=== PATIENT | male | born 1955 | race African-American/Black ===

== ENCOUNTER 2024-04-18 14:37 | Inpatient (IN) | payer MEDICARE ==
[~2024-04-18] VITALS: Ht 167.6 cm; Wt 59.9 kg
[2024-04-18 14:57] VITALS: O2SAT 98
[2024-04-18 15:54] LABS: BASOPHILS % 0.7 % (0.0-2.0); EOSINOPHILS % 0.9 % (0.0-5.0); HEMATOCRIT. 36.2 % (42.0-52.0); LYMPHOCYTES % 22.9 % (20.0-50.0); MEAN CORPUSCULAR HGB CONC 33.2 g/dL (31.0-37.0); MEAN CORPUSCULAR VOLUME 87.4 fL (80.0-94.0); MEAN PLATELET VOLUME 8.7 fl (7.4-10.4); NEUTROPHILS % 69.5 % (40.0-76.0); PLATELET 215 x1000/uL (130-400); RED BLOOD CELL COUNT 4.14 mill/uL (4.7-6.1); RED CELL DISTRIBUTION WIDTH 14.9 % (11.6-14.6); WHITE BLOOD COUNT 6.4 x1000/uL (4.5-11.0)
[2024-04-18 15:57] LABS: CLARITY URINE CLEAR (CLEAR); COLOR URINE DARK YELLOW (YELLOW); GLUCOSE URINE NEGATIVE (NEGATIVE); KETONES URINE TRACE (NEGATIVE); LEUKOCYTE ESTERASE URINE NEGATIVE (NEGATIVE); NITRITE URINE NEGATIVE (NEGATIVE); OCCULT BLOOD URINE NEGATIVE (NEGATIVE); PH URINE 5.5 (4.5-8.0); PROTEIN URINE 1+ (NEGATIVE); SPECIFIC GRAVITY URINE 1.031 (1.005-1.030)
[2024-04-18 15:59] LABS: CHLORIDE 105 mEq/L (98-107); POTASSIUM 4.1 mEq/L (3.5-5.1); SODIUM 140 mEq/L (136-145)
[2024-04-18 16:00] LABS: CARBON DIOXIDE 30 mEq/L (21-32)
[2024-04-18 16:01] LABS: CALCIUM 9.6 mg/dL (8.7-10.4)
[2024-04-18 16:05] LABS: CREATININE 1.7 mg/dL (0.6-1.3); GLUCOSE 84 mg/dL (70-105)
[2024-04-18 16:06] LABS: UREA NITROGEN BLOOD 22 mg/dL (9-23)
[2024-04-18 16:13] LABS: TROPONIN I HIGH SENSITIVITY 83 ng/L (3.0-53)
[2024-04-18] MEDS: HYDRALAZINE 20MG/ML VIAL IV ONE (16:14)
[2024-04-18 16:36] LABS: BACTERIA URINE NONE SEEN; RBC URINE 0-2 /hpf (0-2); SQUAMOUS EPITHELIAL CELL URINE RARE /lpf (RARE/1+); WBC URINE 0-2 /hpf (0-2)
[2024-04-18] MEDS: CLOPIDOGREL 75MG TABLET PO ONE (17:37)
[2024-04-18] MEDS: ASPIRIN 325MG EC TABLET PO ONE (17:37)
[2024-04-18] MEDS ORDERED: ACETAMINOPHEN 325MG TABLET PO PRN ×2 (18:30)
[2024-04-18] MEDS ORDERED: ONDANSETRON HCL 4MG/2ML INJ IV PRN (18:30)
[2024-04-18] MEDS ORDERED: DOCUSATE SODIUM 100MG CAPSULE PO PRN (18:30)
[2024-04-18] MEDS ORDERED: MAGNESIUM/ALUMINUM HYDROXIDE/SIMETHICONE 30ML UDC PO PRN (18:30)
[2024-04-18] MEDS ORDERED: GUAIFENESIN 200MG/10ML SUGAR FREE UDC PO PRN (18:30)
[2024-04-18] MEDS ORDERED: IPRATROPIUM/ALBUTEROL 0.5-3(2.5)MG/3ML NEB HHN PRN (18:30)
[2024-04-18] MEDS: LOSARTAN 25 MG TABLET PO SCH (19:09)
[2024-04-18] MEDS ORDERED: NITROGLYCERIN 0.4MG TABLET SL SL PRN (19:30)
[2024-04-18] MEDS: ENOXAPARIN 30MG/0.3ML SYR SUBCUT SCH (20:00)
[2024-04-18] MEDS: CLONIDINE 0.1MG TABLET PO PRN (20:25)
[2024-04-18 21:08] VITALS: BP 209/77; PULSE 74; RESP 16; TEMP 36.89184; O2SAT 98
[2024-04-18 21:17] VITALS: BP 209/77; PULSE 74; RESP 16; TEMP 36.9184
[2024-04-18] MEDS: ATORVASTATIN CALCIUM 40MG TABLET PO SCH (21:45)
[2024-04-18 22:00] VITALS: BP 166/75; PULSE 73; RESP 16; O2SAT 99
[2024-04-19 03:26] LABS: CREATINE KINASE MB FRACTION < 0.5 ng/mL (0.5-3.6)
[2024-04-19 03:28] LABS: CREATINE KINASE 155 IU/L (46-171)
[2024-04-19 04:00] VITALS: BP 174/97; PULSE 80; RESP 18; TEMP 36.44736; O2SAT 95
[2024-04-19 04:01] LABS: TROPONIN I HIGH SENSITIVITY 97 ng/L (3.0-53)
[2024-04-19 06:16] LABS: CHLORIDE 105 mEq/L (98-107); POTASSIUM 4.1 mEq/L (3.5-5.1); SODIUM 138 mEq/L (136-145)
[2024-04-19 06:17] LABS: CALCIUM 9.2 mg/dL (8.7-10.4); CARBON DIOXIDE 28 mEq/L (21-32)
[2024-04-19 06:20] LABS: BASOPHILS % 0.8 % (0.0-2.0); EOSINOPHILS % 1.2 % (0.0-5.0); HEMATOCRIT. 36.9 % (42.0-52.0); HEMOGLOBIN. 12.2 g/dL (14.0-18.0); LYMPHOCYTES % 25.5 % (20.0-50.0); MEAN CORPUSCULAR HEMOGLOBIN 29.2 pg (28.0-32.0); MEAN CORPUSCULAR HGB CONC 33.2 g/dL (31.0-37.0); MEAN CORPUSCULAR VOLUME 87.9 fL (80.0-94.0); MEAN PLATELET VOLUME 8.7 fl (7.4-10.4); MONOCYTES % 6.6 % (2.0-8.0); NEUTROPHILS % 65.9 % (40.0-76.0); PLATELET 198 x1000/uL (130-400); RED BLOOD CELL COUNT 4.19 mill/uL (4.7-6.1); RED CELL DISTRIBUTION WIDTH 15.1 % (11.6-14.6); WHITE BLOOD COUNT 6.2 x1000/uL (4.5-11.0)
[2024-04-19 06:21] LABS: IRON 67 ug/dL (65-175)
[2024-04-19 06:22] LABS: CREATININE 1.6 mg/dL (0.6-1.3); GLUCOSE 91 mg/dL (70-105); TRIGLYCERIDE 70 mg/dL (0-150); UREA NITROGEN BLOOD 24 mg/dL (9-23)
[2024-04-19 06:23] LABS: LDL CHOLESTEROL 66 mg/dL (5-100)
[2024-04-19 06:24] LABS: CHOLESTEROL 165 mg/dL (<200); HDL CHOLESTEROL 71 mg/dL (>55); TOTAL IRON BINDING CAPACITY 330 ug/dl (250-425)
[2024-04-19 06:25] LABS: *AMPHETAMINES SCREEN URINE NEGATIVE (NEGATIVE); *BARBITURATES SCREEN URINE NEGATIVE (NEGATIVE); *BENZODIAZEPINES SCREEN URINE NEGATIVE (NEGATIVE); *COCAINE SCREEN URINE NEGATIVE (NEGATIVE); CANNABINOID URINE SCREEN NEGATIVE (NEGATIVE); METHADONE URINE SCREEN NEGATIVE (NEGATIVE); OPIATES URINE SCREEN NEGATIVE (NEGATIVE); PHENCYCLIDINE URINE SCREEN NEGATIVE (NEGATIVE)
[2024-04-19 06:26] LABS: ECSTASY MDMA SCREEN URINE NEGATIVE (NEGATIVE)
[2024-04-19 06:26] LABS: T4 FREE 1.18 ng/dL (0.89-1.76)
[2024-04-19 06:27] LABS: THYROID STIMULATING HORMONE 0.64 uIU/mL (0.55-4.78)
[2024-04-19 06:33] LABS: FERRITIN 58 ng/mL (22-322); FOLIC ACID (FOLATE) SERUM > 20.00 ng/mL (>5.38)
[2024-04-19 06:34] LABS: VITAMIN B12 SERUM 929 pg/mL (211-911)
[2024-04-19 08:00] VITALS: BP 172/80; PULSE 56; RESP 11; TEMP 36.6696; O2SAT 98
[2024-04-19] MEDS: ASPIRIN 81MG EC TABLET PO SCH (08:39)
[2024-04-19] MEDS: AMLODIPINE 2.5MG TABLET PO SCH (08:40)
[2024-04-19] MEDS: AMLODIPINE 10MG TABLET PO SCH (09:42)
[2024-04-19] MEDS: HYDROCHLOROTHIAZIDE 25MG TABLET PO SCH (09:42)
[2024-04-19 10:57] LABS: CREATINE KINASE MB FRACTION 0.6 ng/mL (0.5-3.6)
[2024-04-19 12:00] VITALS: BP 146/80; PULSE 56; RESP 13; TEMP 36.83628; O2SAT 100
[2024-04-19 16:00] VITALS: BP 143/73; PULSE 62; RESP 16; TEMP 36.89184; O2SAT 98
[2024-04-19 20:05] VITALS: BP 159/79; PULSE 63; RESP 16; TEMP 36.22512; O2SAT 98
[2024-04-19] MEDS: ENOXAPARIN 40MG/0.4ML SYR SUBCUT SCH (22:05)
[2024-04-20 00:05] VITALS: BP 157/75; PULSE 56; RESP 17; TEMP 36.16956; O2SAT 98
[2024-04-20 01:25] LABS: TROPONIN I HIGH SENSITIVITY 104 ng/L (3.0-53)
[2024-04-20 04:05] VITALS: BP 153/89; PULSE 55; RESP 12; TEMP 36.33624; O2SAT 100
[2024-04-20 07:01] LABS: TROPONIN I HIGH SENSITIVITY 97 ng/L (3.0-53)
[2024-04-20 08:00] VITALS: BP 178/80; PULSE 60; RESP 12; TEMP 37.28076; O2SAT 98
[2024-04-20] MEDS: SPIRONOLACTONE 25MG TABLET PO SCH (08:18)
[2024-04-20 08:19] VITALS: PULSE 63
[2024-04-20] MEDS: CARVEDILOL 3.125 MG TABLET PO SCH (08:19)
[2024-04-20] MEDS: ENOXAPARIN 30MG/0.3ML SYR SUBCUT SCH (08:25)
[2024-04-20] MEDS ORDERED: LIP40 PO (10:19)
[2024-04-20] MEDS ORDERED: SPIR25TA PO (10:19)
[2024-04-20] MEDS ORDERED: COR3 PO (10:19)
[2024-04-20] MEDS ORDERED: ASPI-1406 PO (10:19)
[2024-04-20] MEDS ORDERED: HYDR25TA PO (10:19)
[2024-04-20] MEDS ORDERED: LOSA25TA26 PO (10:19)
[2024-04-20] MEDS: HYDRALAZINE 20MG/ML VIAL IV PRN (11:02)
== END 2024-04-20 11:30 | disposition left against medical advice (07) | DRG 280 ==
LOC: ER 14:37 → EDBEDREQ 17:43 → EDBEDREQTM 17:43 → 3WST 21:11
PROVIDERS: ADMIT Hospitalist; ATTEND Hospitalist
DX: I21.4 Non-ST elevation (NSTEMI) myocardial infarction (principal); I50.41 Acute combined systolic (congestive) and diastolic (congestive) heart failure; I16.1 Hypertensive emergency; N17.9 Acute kidney failure, unspecified; Z59.02 Unsheltered homelessness; E78.5 Hyperlipidemia, unspecified; N18.9 Chronic kidney disease, unspecified; R80.9 Proteinuria, unspecified; Z53.29 Procedure and treatment not carried out because of patient's decision for other reasons; D64.9 Anemia, unspecified; Z79.02 Long term (current) use of antithrombotics/antiplatelets; Z79.82 Long term (current) use of aspirin; Z79.899 Other long term (current) drug therapy; Z87.891 Personal history of nicotine dependence
CPT/HCPCS: 36415; 71045; 80048; 80061; 80305; 81003; 82550; 82553; 82607; 82728; 82746; 83540; 83550; 83735; 83880; 84439; 84443; 84484; 85025; 93306; 99285; J0360; J1650